=== PATIENT | male | born 1975 | race Caucasian/White ===

== ENCOUNTER 2025-06-17 18:20 | Emergency (ER) | payer SELFPAY ==
[~2025-06-17] VITALS: Ht 172.7 cm; Wt 97.5 kg
[2025-06-17] MEDS: IBUPROFEN 400 MG TAB PO STA (18:49)
[2025-06-17 20:15] VITALS: PULSE 87; RESP 17; TEMP 97.7
[2025-06-17 20:16] VITALS: BP 117/84; PULSE 87; RESP 17; TEMP 97.7; O2SAT 96
== END 2025-06-17 20:24 | disposition home or self-care (01) ==
LOC: FSED 18:30
DX: S20.212A Contusion of left front wall of thorax, initial encounter (principal); M25.552 Pain in left hip; V53.5XXA Driver of pick-up truck or van injured in collision with car, pick-up truck or van in traffic accident, initial encounter; Y92.488 Other paved roadways as the place of occurrence of the external cause; I10 Essential (primary) hypertension; F17.210 Nicotine dependence, cigarettes, uncomplicated
CPT/HCPCS: 71250; 99284